=== PATIENT | female | born 1970 | race Caucasian/White ===

== ENCOUNTER 2020-10-06 00:19 | Emergency (ER) | payer BC, OTHER ==
[2020-10-06 00:24] VITALS: BP 137/96; PULSE 94; RESP 20; TEMP 98.1
--- NOTE | 2020-10-06 00:33 | ED ---
ENT HPI - General Chief complaint: ENT Stated complaint: throat issues Time Seen by Provider: 10/06/20 00:32 Source: patient, family Mode of arrival: ambulatory Limitations: no limitations - Related Data Previous Rx's Medication Instructions Recorded clindamycin HCL [Cleocin] 300 mg PO Q6HR #40 cap 10/06/20 Allergies Allergy/AdvReac Type Severity Reaction Status Date / Time heparin Allergy Rash/Hives Verified 10/06/20 00:24 lisinopril Allergy Rash/Hives Verified 10/06/20 00:24 Penicillins Allergy Rash/Hives Verified 10/06/20 00:24 Review of Systems ROS Statement: Those systems with pertinent positive or pertinent negative responses have been documented in the HPI. ROS Other: All systems not noted in ROS Statement are negative. Past Medical History Past Medical History: Hypertension History of Any Multi-Drug Resistant Organisms: None Reported Past Surgical History: No Surgical Hx Reported Past Psychological History: No Psychological Hx Reported Smoking Status: Never smoker Past Alcohol Use History: Occasional Past Drug Use History: None Reported General Exam Limitations: no limitations Course Vital Signs 10/06/20 00:21 Temperature 98.1 F Pulse Rate 94 Respiratory 20 Rate Blood Pressure 137/96 O2 Sat by Pulse 97 Oximetry Medical Decision Making - Lab Data Result diagrams: 10/06/20 01:21 10/06/20 01:21 Lab Results 10/06/20 10/06/20 10/06/20 Range/Units 01:21 01:21 01:21 WBC 7.9 (3.8-10.6) k/uL RBC 4.95 (3.80-5.40) m/uL Hgb 11.1 L (11.4-16.0) gm/dL Hct 35.3 (34.0-46.0) % MCV 71.3 L (80.0-100.0) fL MCH 22.5 L (25.0-35.0) pg MCHC 31.6 (31.0-37.0) g/dL RDW 16.4 H (11.5-15.5) % Plt Count 315 (150-450) k/uL MPV 6.7 Neutrophils % 62 % Lymphocytes % 29 % Monocytes % 4 % Eosinophils % 2 % Basophils % 1 % Neutrophils # 4.9 (1.3-7.7) k/uL Lymphocytes # 2.3 (1.0-4.8) k/uL Monocytes # 0.3 (0-1.0) k/uL Eosinophils # 0.2 (0-0.7) k/uL Basophils # 0.1 (0-0.2) k/uL Hypochromasia Moderate Anisocytosis Slight Microcytosis Moderate Sodium 140 (137-145) mmol/L Potassium 4.9 (3.5-5.1) mmol/L Chloride 103 (98-107) mmol/L Carbon Dioxide 30 (22-30) mmol/L Anion Gap 7 mmol/L BUN 20 H (7-17) mg/dL Creatinine 0.56 (0.52-1.04) mg/dL Est GFR (CKD-EPI)AfAm >90 (>60 ml/min/1.73 sqM) Est GFR (CKD-EPI)NonAf >90 (>60 ml/min/1.73 sqM) Glucose 120 H (74-99) mg/dL Calcium 9.1 (8.4-10.2) mg/dL Phosphorus 4.3 (2.5-4.5) mg/dL Magnesium 2.0 (1.6-2.3) mg/dL Total Bilirubin 0.3 (0.2-1.3) mg/dL AST 37 H (14-36) U/L ALT 19 (4-34) U/L Alkaline Phosphatase 90 (38-126) U/L Creatine Kinase 128 (30-135) U/L NT-Pro-B Natriuret Pep 39 pg/mL Total Protein 7.0 (6.3-8.2) g/dL Albumin 4.2 (3.5-5.0) g/dL Disposition Clinical Impression: Thyroglossal duct cyst, Thyroglossal duct infection Disposition: HOME SELF-CARE Condition: Good Instructions (If sedation given, give patient instructions): Cellulitis (ED) Prescriptions: clindamycin HCL [Cleocin] 300 mg PO Q6HR #40 cap Is patient prescribed a controlled substance at d/c from ED?: No Referrals: Rohan Lees MD [STAFF PHYSICIAN] - 1-2 days
[2020-10-06] MEDS ORDERED: SODIUM CHLORIDE 0.9% 1,000 ML IV STA (00:41)
[2020-10-06] MEDS ORDERED: FAMOTIDINE 20 MG/2 ML VIAL IV STA (01:23)
[2020-10-06] MEDS ORDERED: methylPREDNISolone SOD SUCCI 125 MG/2 ML VIAL IV STA (01:23)
[2020-10-06] MEDS ORDERED: diphenhydrAMINE 50 MG/ML 1 ML VIAL IVP STA (01:23)
[2020-10-06 01:52] LABS: Anisocytosis Slight; Basophils # (A) 0.1 k/uL (0-0.2); Basophils % (A) 1 %; Eosinophils # (A) 0.2 k/uL (0-0.7); Eosinophils % (A) 2 %; HCT 35.3 % (34.0-46.0); HGB 11.1 gm/dL (11.4-16.0); Hypochromasia Moderate; Lymphocytes # (A) 2.3 k/uL (1.0-4.8); Lymphocytes % (A) 29 %; MCH 22.5 pg (25.0-35.0); MCHC 31.6 g/dL (31.0-37.0); MCV 71.3 fL (80.0-100.0); Mean Platelet Volume 6.7; Microcytosis Moderate; Monocytes # (A) 0.3 k/uL (0-1.0); Monocytes % (A) 4 %; Neutrophils # (A) 4.9 k/uL (1.3-7.7); Neutrophils % (A) 62 %; Platelet Count 315 k/uL (150-450); RBC 4.95 m/uL (3.80-5.40); RDW 16.4 % (11.5-15.5); WBC 7.9 k/uL (3.8-10.6)
[2020-10-06 02:04] LABS: ALT 19 U/L (4-34); AST 37 U/L (14-36); African American GFR (CKD) >90 (>60 ml/min/1.73 sqM); Albumin 4.2 g/dL (3.5-5.0); Alkaline Phosphatase 90 U/L (38-126); Anion Gap 7 mmol/L; Blood Urea Nitrogen 20 mg/dL (7-17); Calcium 9.1 mg/dL (8.4-10.2); Carbon Dioxide 30 mmol/L (22-30); Chloride 103 mmol/L (98-107); Creatine Kinase 128 U/L (30-135); Glucose 120 mg/dL (74-99); Non-African American GFR(CKD) >90 (>60 ml/min/1.73 sqM); Phosphorus 4.3 mg/dL (2.5-4.5); Potassium 4.9 mmol/L (3.5-5.1); Sodium 140 mmol/L (137-145); Total Bilirubin 0.3 mg/dL (0.2-1.3)
--- NOTE | 2020-10-06 02:04 | CT ---
EXAMINATION TYPE: CT soft tissue neck w con DATE OF EXAM: 10/06/2020 COMPARISON: None HISTORY: Swelling in throat CT DLP: 375.1 mGycm Automated exposure control for dose reduction was used. CONTRAST: Performed with IV Contrast, patient injected with 100 mL of Isovue 300. Images obtained from the aortic arch to the top of the frontal sinuses with IV contrast. There is no evidence of mediastinal adenopathy. There is normal branching pattern of the great vessel s on the aortic arch. Thyroid gland is symmetric. Epiglottis is normal. Subglottic trachea appears no rmal. Submandibular salivary glands appear normal. There is normal contrast opacification of carotid arteries and jugular veins. There is normal enhancement of the vertebral arteries. The parotid glands are symmetric. The tonsils and adenoids appear within normal limits. I see no evid ence of a pharyngeal mass. There is no evidence of any significant cervical adenopathy. There is 11 x 8 mm right anterior triangle cervical lymph node. The tongue appears intact. There is no evidence of orbital mass. There is fairly normal aeration of the paranasal sinuses. I see no bony destructive process. There is a few millimeter anterior subluxation of C3 in relation to C4. There is degenerative disc sp rj narrowing in the lower cervical spine. IMPRESSION: No evidence of pharyngeal mass. Normal epiglottis. Cervical spondylotic changes.
--- NOTE | 2020-10-06 02:54 | US ---
EXAMINATION TYPE: US thyroid st tissue head/neck DATE OF EXAM: 10/06/2020 COMPARISON: CT CLINICAL HISTORY: mass. Mass per order, just below patient's chin. Scanned area of patient's concern. Palpable area was submandibular and midline within the neck, supe rior to the thyroid gland. -Hypoechoic area seen measuring 0.5 x 0.4 x 0.4 cm. -Hypoechoic area with hyperechoic center and vascularity seen just inferior measurin.9 x 1.1 x 0. 7 cm. IMPRESSION: There is a complex cyst in the midline neck above the thyroid gland that could be thyroglossal duct c yst. There are submandibular lymph nodes that measure up to 11 x 7 mm.
[2020-10-06] MEDS ORDERED: KETOROLAC 15 MG/ML 1 ML VIAL IVP STA (02:57)
[2020-10-06] MEDS ORDERED: CLINDAMYCIN 150 MG CAP PO STA (03:03)
== END 2020-10-06 03:42 | disposition home or self-care (01) ==
LOC: EC 00:19
DX: K14.8 Other diseases of tongue (principal); Q89.2 Congenital malformations of other endocrine glands; I10 Essential (primary) hypertension; Z88.0 Allergy status to penicillin
CPT/HCPCS: 36415; 83880; 80053; 82550; 83735; 84100; 85025; 76536; 70491; 99283; 96374; 96375 ×3; 96361; J1200; J2930; J1885; Q9967

== ENCOUNTER → 2021-03-25 | Outpatient (CLI) | payer SELFPAY ==
[~2021-03-25] MED LIST: CASIRIVIMAB (REGN10933) (EUA) 600 MG, IMDEVIMAB (REGN10987) (EUA) 600 MG in SODIUM CHLO... IVPB ONE
[2021-03-25] MEDS: CASIRIVIMAB (REGN10933) (EUA) 600 MG, IMDEVIMAB (REGN10987) (EUA) 600 MG in SODIUM CHLO... IVPB ONE (08:10)
[2021-03-25] MEDS: SODIUM CHLORIDE 0.9% 500 ML 500 ML in EMPTY BAG 1 BAG IV PRN (08:10)
[2021-03-25 08:27] VITALS: TEMP 98.7
[2021-03-25] MEDS: SODIUM CHLORIDE 0.9% 50 ML IVPB ONE (08:33)
[2021-03-25 09:41] VITALS: BP 132/78; PULSE 78; RESP 17
== END ==
LOC: PROCWHC3 08:23
PROVIDERS: ATTEND Family Medicine
DX: U07.1 COVID-19 (principal); E66.9 Obesity, unspecified; Z68.41 Body mass index [BMI] 40.0-44.9, adult; Z88.8 Allergy status to other drugs, medicaments and biological substances; Z88.0 Allergy status to penicillin
CPT/HCPCS: Q0244; M0243

== ENCOUNTER → 2021-05-24 | Outpatient (CLI) | payer BC | END | disposition home or self-care (01) | LOC: LABWHC1 11:27 | PROVIDERS: ATTEND Family Medicine | DX: R73.9 Hyperglycemia, unspecified (principal) | CPT/HCPCS: 36415; 82947; 83036 ==

== ENCOUNTER 2022-02-06 18:01 | Emergency (ER) | payer BC ==
[2022-02-06 18:07] VITALS: TEMP 98.1
[2022-02-06] MEDS ORDERED: PANTOPRAZOLE 40 MG/10 ML VIAL IVP STA (18:14)
[2022-02-06] MEDS ORDERED: SODIUM CHLORIDE 0.9% 1,000 ML IV STA (18:14)
[2022-02-06] MEDS ORDERED: diphenhydrAMINE 50 MG/ML 1 ML VIAL IVP STA (18:14)
[2022-02-06] MEDS ORDERED: ONDANSETRON 4 MG/2 ML VIAL IVP STA (18:14)
[2022-02-06 18:43] LABS: Basophils # (A) 0.1 k/uL (0-0.2); Basophils % (A) 0 %; Eosinophils # (A) 0.2 k/uL (0-0.7); Eosinophils % (A) 1 %; HCT 46.3 % (34.0-46.0); HGB 15.8 gm/dL (11.4-16.0); Lymphocytes # (A) 2.2 k/uL (1.0-4.8); Lymphocytes % (A) 13 %; MCH 30.5 pg (25.0-35.0); MCHC 34.1 g/dL (31.0-37.0); MCV 89.4 fL (80.0-100.0); Mean Platelet Volume 8.5; Monocytes # (A) 0.3 k/uL (0-1.0); Monocytes % (A) 2 %; Neutrophils # (A) 13.7 k/uL (1.3-7.7); Neutrophils % (A) 83 %; Platelet Count 277 k/uL (150-450); RBC 5.18 m/uL (3.80-5.40); RDW 12.9 % (11.5-15.5); WBC 16.6 k/uL (3.8-10.6)
[2022-02-06 18:56] LABS: ALT 41 U/L (4-34); AST 45 U/L (14-36); African American GFR (CKD) >90 (>60 ml/min/1.73 sqM); Albumin 5.2 g/dL (3.5-5.0); Alkaline Phosphatase 108 U/L (38-126); Amylase 186 U/L (30-110); Anion Gap 12 mmol/L; Blood Urea Nitrogen 22 mg/dL (7-17); Calcium 10.2 mg/dL (8.4-10.2); Carbon Dioxide 29 mmol/L (22-30); Chloride 101 mmol/L (98-107); Glucose 148 mg/dL (74-99); Lipase 115 U/L (23-300); Non-African American GFR(CKD) 90 (>60 ml/min/1.73 sqM); Sodium 142 mmol/L (137-145); Total Bilirubin 0.5 mg/dL (0.2-1.3); Total Protein 8.3 g/dL (6.3-8.2)
--- NOTE | 2022-02-06 19:16 | ED ---
Nausea/Vomiting/Diarrhea HPI - General Chief complaint: Nausea/Vomiting/Diarrhea Stated complaint: Vomiting Time Seen by Provider: 02/06/22 18:05 Source: patient, EMS, RN notes reviewed Mode of arrival: EMS Limitations: no limitations - History of Present Illness Initial comments: This is a 52-year-old female who presents to the emergency department for nausea and vomiting. States that approximately 3 hours prior to arrival, she started throwing up profusely. The next thing she knew, she was on the bathroom floor with her head between her knees. Does not believe that she lost consciousness. Feels very dehydrated and "out of it". States that she has never experienced anything like this before. Denies any diarrhea, constipation, associated abdo maryann pain, or fevers. She does feel very sweaty. Patient was noted to be diaphoretic in the examination room. Denies any fevers, chills, sore throat, cough, dyspnea, chest pain, palpitat ions, abdominal pain, diarrhea, back pain, or headaches. MD complaint: nausea, vomiting Associated Abdominal Pain: No - Related Data Home Medications Medication Instructions Recorded Confirmed Cholecalciferol [Vitamin D3 (25 25 mcg PO DAILY 08/24/21 10/05/21 Mcg = 1000 Iu)] PARoxetine [Paxil] 10 mg PO DAILY 08/24/21 10/05/21 Vitamin B Complex 1 each PO DAILY 08/24/21 10/05/21 Previous Rx's Medication Instructions Recorded Ondansetron Odt [Zofran Odt] 4 mg PO Q8HR PRN #20 tab 02/06/22 Tamsulosin [Flomax] 0.4 mg PO DAILY #10 cap 02/06/22 Allergies Allergy/AdvReac Type Severity Reaction Status Date / Time heparin Allergy Rash/Hives Verified 10/05/21 09:57 lisinopril Allergy Rash/Hives Verified 10/05/21 09:57 Penicillins Allergy Rash/Hives Verified 10/05/21 09:57 Review of Systems ROS Statement: Those systems with pertinent positive or pertinent negative responses have been documented in the HPI. ROS Other: All systems not noted in ROS Statement are negative. Past Medical History Past Medical History: Hypertension Additional Past Medical History / Comment(s): PAST [employer] HISTORY: She has no history of STDs. History of Any Multi-Drug Resistant Organisms: None Reported Past Surgical History: Bariatric Surgery Additional Past Surgical History / Comment(s): Laparoscopic examination for infertility. Gastric bypass. Past Psychological History: Depression Smoking Status: Never smoker - Past Family History Mother Additional Family Medical History / Comment(s): Parkinson's disease. Aortic valve replacement. Father Family Medical History: Diabetes Mellitus Additional Family Medical History / Comment(s): . General Exam Limitations: no limitations General appearance: alert, in distress Head exam: Present: atraumatic, normocephalic, normal inspection Respiratory exam: Present: normal lung sounds bilaterally. Absent: respiratory distress, wheezes, rales, rhonchi, stridor Cardiovascular Exam: Present: regular rate, normal rhythm, normal heart sounds. Absent: systolic murmur, diastolic murmur, rubs, gallop, clicks GI/Abdominal exam: Present: soft, normal bowel sounds. Absent: distended, tenderness, guarding, rebound, rigid Neurological exam: Present: alert, oriented X3, CN II-XII intact Psychiatric exam: Present: normal affect, normal mood Skin exam: Present: warm, intact, normal color, diaphoretic. Absent: rash Course Vital Signs 02/06/22 02/06/22 18:04 22:39 Temperature 98.1 F Pulse Rate 94 81 Respiratory 18 16 Rate Blood Pressure 133/80 128/67 O2 Sat by Pulse 96 98 Oximetry Medical Decision Making - Medical Decision Making This is a 52-year-old female who presents to the emergency department for nausea and vomiting. Lab work reveals leukocytosis. This may be reactive or related to an infection. Discussed with the patient the possibility of getting a CT scan versus monitoring her symptoms due to the fact that there is not any pain. She is agreeable to the CT scan and would like to proceed due to the severity of her symptoms earlier. Computed tomography scan reveals a nonobstructing left ureteral calculus with focal hydroureter. Urinalysis reveals no signs of infection. Additionally, there is mild intrahepatic and extrahepatic biliary duct dilation. Ultrasound of the gallbladder was suggested. Findings discussed the patient, and she does wish to proceed with the ultrasound. Gallbladder ultrasound was subsequently obtained. US revealed cholelithiasis with a dilated common bile duct and gallbladder wall thickening. Sonographic Steiner's sign was negative. Findings were equivocal for a cholecystitis. Given that the patient is essentially asymptomatic at this time, we discussed that this is unlikely to be an acute infection, especially as she has not had any severe pain while she has been in the emergency department, and she is not able to recall any pain from earlier in the day. Patient states that she feels much better and requests discharge home. I did offer admission due to these equivocal findings, however she declined and is comfortable following up as an outpatient. She was given information for general surgery follow-up and urology follow-up. Instructed her to contact both offices in the morning to discuss further management. Prescription for Zofran provided for any additional nausea and vomiting as well as Flomax for the kidney stone. Instructed her to follow a low-fat diet to reduce the risk of another gallbladder attack. If she does develop any pain, advised [id number] ibuprofen and Tylenol. Symptoms were treated with IV fluids and Zofran, which improved her symptoms dramatically. She was able to eat and drink water without any difficulty prior to discharge. Return precautions reviewed in depth, the patient is instructed to return to the emergency department with any new, worsening, or concerning symptoms. Patient verbalized understanding. This case was discussed in detail with the attending ED physician. Presentation, findings, and treatment plan discussed in detail as well. - Lab Data Result diagrams: 02/06/22 18:29 02/06/22 18:29 Lab Results 02/06/22 02/06/22 02/06/22 Range/Units 18:29 18:29 18:29 WBC 16.6 H (3.8-10.6) k/uL RBC 5.18 (3.80-5.40) m/uL Hgb 15.8 (11.4-16.0) gm/dL Hct 46.3 H (34.0-46.0) % MCV 89.4 (80.0-100.0) fL MCH 30.5 (25.0-35.0) pg MCHC 34.1 (31.0-37.0) g/dL RDW 12.9 (11.5-15.5) % Plt Count 277 (150-450) k/uL MPV 8.5 Neutrophils % 83 % Lymphocytes % 13 % Monocytes % 2 % Eosinophils % 1 % Basophils % 0 % Neutrophils # 13.7 H (1.3-7.7) k/uL Lymphocytes # 2.2 (1.0-4.8) k/uL Monocytes # 0.3 (0-1.0) k/uL Eosinophils # 0.2 (0-0.7) k/uL Basophils # 0.1 (0-0.2) k/uL Sodium 142 (137-145) mmol/L Potassium 4.0 (3.5-5.1) mmol/L Chloride 101 (98-107) mmol/L Carbon Dioxide 29 (22-30) mmol/L Anion Gap 12 mmol/L BUN 22 H (7-17) mg/dL Creatinine 0.76 (0.52-1.04) mg/dL Est GFR (CKD-EPI)AfAm >90 (>60 ml/min/1.73 sqM) Est GFR (CKD-EPI)NonAf 90 (>60 ml/min/1.73 sqM) Glucose 148 H (74-99) mg/dL Calcium 10.2 (8.4-10.2) mg/dL Total Bilirubin 0.5 (0.2-1.3) mg/dL AST 45 H (14-36) U/L ALT 41 H (4-34) U/L Alkaline Phosphatase 108 (38-126) U/L Troponin I <0.012 (0.000-0.034) ng/mL Total Protein 8.3 H (6.3-8.2) g/dL Albumin 5.2 H (3.5-5.0) g/dL Amylase 186 H (30-110) U/L Lipase 115 (23-300) U/L Urine Color Urine Appearance (Clear) Urine pH (5.0-8.0) Ur Specific [place] (1.001-1.035) Urine Protein (Negative) Urine Glucose (UA) (Negative) Urine Ketones (Negative) Urine Blood (Negative) Urine Nitrite (Negative) Urine Bilirubin (Negative) Urine Urobilinogen (<2.0) mg/dL Ur Leukocyte Esterase (Negative) Coronavirus (PCR) (Not Detectd) Influenza Type A RNA (Not Detectd) Influenza Type B (PCR) (Not Detectd) 02/06/22 02/06/22 02/06/22 Range/Units 18:29 18:29 20:58 WBC (3.8-10.6) k/uL RBC (3.80-5.40) m/uL Hgb (11.4-16.0) gm/dL Hct (34.0-46.0) % MCV (80.0-100.0) fL MCH (25.0-35.0) pg MCHC (31.0-37.0) g/dL RDW (11.5-15.5) % Plt Count (150-450) k/uL MPV Neutrophils % % Lymphocytes % % Monocytes % % Eosinophils % % Basophils % % Neutrophils # (1.3-7.7) k/uL Lymphocytes # (1.0-4.8) k/uL Monocytes # (0-1.0) k/uL Eosinophils # (0-0.7) k/uL Basophils # (0-0.2) k/uL Sodium (137-145) mmol/L Potassium (3.5-5.1) mmol/L Chloride (98-107) mmol/L Carbon Dioxide (22-30) mmol/L Anion Gap mmol/L BUN (7-17) mg/dL Creatinine (0.52-1.04) mg/dL Est GFR (CKD-EPI)AfAm (>60 ml/min/1.73 sqM) Est GFR (CKD-EPI)NonAf (>60 ml/min/1.73 sqM) Glucose (74-99) mg/dL Calcium (8.4-10.2) mg/dL Total Bilirubin (0.2-1.3) mg/dL AST (14-36) U/L ALT (4-34) U/L Alkaline Phosphatase (38-126) U/L Troponin I (0.000-0.034) ng/mL Total Protein (6.3-8.2) g/dL Albumin (3.5-5.0) g/dL Amylase (30-110) U/L Lipase (23-300) U/L Urine Color Light Yellow Urine Appearance Clear (Clear) Urine pH 8.0 (5.0-8.0) Ur Specific [place] 1.024 (1.001-1.035) Urine Protein Negative (Negative) Urine Glucose (UA) Negative (Negative) Urine Ketones Negative (Negative) Urine Blood Negative (Negative) Urine Nitrite Negative (Negative) Urine Bilirubin Negative (Negative) Urine Urobilinogen <2.0 (<2.0) mg/dL Ur Leukocyte Esterase Negative (Negative) Coronavirus (PCR) Not Detected (Not Detectd) Influenza Type A RNA Not Detected (Not Detectd) Influenza Type B (PCR) Not Detected (Not Detectd) - EKG Data -: EKG Interpreted by Me EKG Comments: Sinus rhythm. Ventricular rate 89 bpm, MO interval 149 ms, QRS duration 105 ms, QTC 397 ms. - Radiology Data Radiology results: report reviewed, image reviewed Disposition Clinical Impression: Cholelithiasis, Ureteral calculus, left Disposition: HOME SELF-CARE Instructions (If sedation given, give patient instructions): Biliary Colic (ED), Gallstones (ED), Kidney Stones (ED), Renal Colic (ED) Additional Instructions: Return to the emergency department with any new, worsening, or concerning symptoms. Take the Zofran up to every 8 hours as needed for nausea and vomiting. Take the Flomax daily until the prescription is finished or until told otherwise by urology. Reduce your intake of fatty foods to limit the chance of a recurrent gallbladder attack. It may be helpful to do some research regarding which foods to avoid with gallbladder problems. Make sure that you contact Dr. Hernandez as listed below to discuss removal of your gallbladder. If you do experience any pain, you can take ibuprofen and Tylenol. Contact urology as well regarding the kidney stone. Follow up with your primary care provider in 1-2 days. Prescriptions: Tamsulosin [Flomax] 0.4 mg PO DAILY #10 cap Ondansetron Odt [Zofran Odt] 4 mg PO Q8HR PRN #20 tab PRN Reason: Nausea And Vomiting Is patient prescribed a controlled substance at d/c from ED?: No Referrals: Reji Simmons MD [Primary Care Provider] - 1-2 days Sergey Hernandez MD [Medical Doctor] - 1-2 days Meliton Knowles MD [STAFF PHYSICIAN] - 1-2 days
[2022-02-06] MEDS ORDERED: FAMOTIDINE 20 MG/2 ML VIAL IV STA (19:44)
[2022-02-06] MEDS ORDERED: methylPREDNISolone SOD SUCCI 125 MG/2 ML VIAL IV STA (19:44)
--- NOTE | 2022-02-06 20:15 | CT ---
EXAMINATION TYPE: CT abdomen pelvis w con CT DLP: 1419.3 mGycm, Automated exposure control for dose reduction was used. DATE OF EXAM: 02/06/2022 8:02 PM COMPARISON: None CLINICAL INDICATION:Female, 52 years old with history of Vomiting, abdominal pain; Vomiting, abdomina l pain TECHNIQUE: Axial CT of the abdomen and pelvis. Sagittal and coronal reformats were created on a [employer] workstation. Contrast used:100cc mL of Isovue 300 with IV Contrast, Oral contrast used: without Oral Contrast FINDINGS: LOWER CHEST: Unremarkable ABDOMEN LIVER: Mild intrahepatic biliary ductal dilatation, most dense within the left hepatic lobe. The live r is otherwise normal in appearance. GALLBLADDER AND BILE DUCTS: Contracted appearance of the gallbladder without evidence for calcified c holelithiasis. Common bile duct is prominent measuring up to 8 mm in maximal width (series 202, image 60). No evidence for pericholecystic fluid PANCREAS: Unremarkable. SPLEEN: Unremarkable. ADRENAL GLANDS: Unremarkable. KIDNEYS AND URETERS: The left mid ureter is a 5 mm calculus (series 202, image 68). There is focal hy droureter without evidence for hydronephrosis. Mild periureteral fat stranding. The right kidney is n ormal in appearance. PELVIS BLADDER: Unremarkable REPRODUCTIVE: Unremarkable. ABDOMEN & PELVIS STOMACH AND BOWEL: Surgical changes to the stomach. Small hiatal hernia.. Scattered diverticula are n oted throughout the colon. No evidence of bowel obstruction. Appendix is normal. PERITONEUM: No evidence of pneumoperitoneum or free fluid. VASCULATURE: No evidence of aortic aneurysm. MUSCULOSKELETAL: No acute osseous abnormalities. Grade 1 anterolisthesis of L4 and L5. Mild disc dege neration changes are present throughout the thoracolumbar spine. LYMPH NODES: No gross evidence for lymphadenopathy. SOFT TISSUE/ABDOMINAL WALL: Unremarkable IMPRESSION: 1. Non-obstructing 5 mm left ureteral calculus. No hydronephrosis. 2. Mild intra and extrahepatic biliary ductal dilatation. No evidence for calcified cholelithiasis. C orrelate for history of right upper quadrant pain and consideration for right upper quadrant ultrasou nd. 3.Small hiatal hernia. 4. Colonic diverticulosis.
[2022-02-06 21:51] LABS: Appearance,Urine Clear (Clear); Bilirubin,Urine Negative (Negative); Blood,Urine Negative (Negative); Color,Urine Light Yellow; Glucose,Urine (UA) Negative (Negative); Ketones,Urine Negative (Negative); Leukocyte Esterase,Urine Negative (Negative); Nitrite,Urine Negative (Negative); Protein,Urine Negative (Negative); Specific Gravity,Urine 1.024 (1.001-1.035); Urobilinogen,Urine <2.0 mg/dL (<2.0)
[2022-02-06] MEDS ORDERED: ONDANSETRON 4 MG ODT STARTER PACK 2 TAB BTL PO STA (21:56)
--- NOTE | 2022-02-06 21:59 | US ---
EXAMINATION TYPE: US gallbladder DATE OF EXAM: 02/06/2022 COMPARISON: CT abdomen pelvis 02/07/2020 2:00 PM CLINICAL HISTORY: Pain, nausea and vomiting, abnormal CT. TECHNIQUE: Multiple sonographic images of the right upper quadrant are obtained. FINDINGS: EXAM MEASUREMENTS: Liver Length: 16.0 cm Gallbladder Wall: 0.5 cm CBD: 1.1 cm Right Kidney: 10.6 x 4.2 x 6.0 cm ENROBING MACHINE CORDER NOTES: Patient of very large body habitus with extensive overlying bowel gas, technically difficult study, l imited study. Pancreas: Obscured by bowel gas Liver: Portions of the liver are obscured by body habitus and overlying bowel gas. Liver measures ole roximately 16 cm in length. Gallbladder: Gallbladder wall thickening. Multiple echogenic gallstones within the lumen. No apprecia ble pericholecystic fluid. Evidence for sonographic Steiner's sign: Per developer evangelist patient sonographic Steiner sign was negativ e. CBD: Dilated common bile duct measuring up to 10 mm. Right Kidney: No hydronephrosis or masses seen IMPRESSION: Cholelithiasis with dilated common bile duct. Findings are equivocal for acute cholecystitis in the s etting of a negative sonographic Steiner sign. Consider further evaluation with nuclear medicine hepat obiliary scan.
[2022-02-06 22:40] VITALS: BP 128/67; PULSE 81; RESP 16
== END 2022-02-06 22:40 | disposition home or self-care (01) ==
LOC: EC 18:01
DX: K80.20 Calculus of gallbladder without cholecystitis without obstruction (principal); N20.1 Calculus of ureter; I10 Essential (primary) hypertension; Z20.822 Contact with and (suspected) exposure to COVID-19; Z88.0 Allergy status to penicillin; Z88.8 Allergy status to other drugs, medicaments and biological substances
CPT/HCPCS: 36415; 93005; 80053; 82150; 83690; 84484; 85025; 81003; 87502; 87635; 76705; 74177; 99285; 96375 ×4; 96374; 96361; J1200; J2930; J2405; S0119; C9113; Q9967

== ENCOUNTER 2022-04-07 02:36 | Emergency (ER) | payer BC ==
[2022-04-07 02:45] VITALS: TEMP 97.3
[2022-04-07] MEDS ORDERED: SODIUM CHLORIDE 0.9% 1,000 ML IV STA (03:21)
[2022-04-07] MEDS ORDERED: HYDROmorphone 0.5 MG/0.5 ML SYRINGE IVP STA (03:21)
[2022-04-07] MEDS ORDERED: ONDANSETRON 4 MG/2 ML VIAL IVP STA (03:21)
--- NOTE | 2022-04-07 03:22 | ED ---
Abdominal Pain HPI - General Chief Complaint: Back Pain/Injury Stated Complaint: Back Pain,ABD Pain Time Seen by Provider: 04/07/22 03:21 Source: patient, RN notes reviewed, old records reviewed Mode of arrival: ambulatory Limitations: no limitations - History of Present Illness Initial Comments: This is a 52-year-old female to the emergency department for evaluation patient presents today for evaluation regards to abdominal pain back pain. History of chronic back pain history of gastric bypass. Patient's pain is severe currently. Patient also believes she has decreased urine output and nausea MD Complaint: abdominal pain -: hour(s) Location: LLQ, suprapubic, L flank Radiation: suprapubic Migration to: suprapubic Severity: moderate Severity scale (1-10): 4 Quality: cramping, stabbing, aching Consistency: constant Improves With: nothing Worsens With: nothing Associated Symptoms: nausea, vomiting Treatments Prior to Arrival: other (0) - Related Data Home Medications Medication Instructions Recorded Confirmed Cholecalciferol [Vitamin D3 (25 25 mcg PO DAILY 08/24/21 10/05/21 Mcg = 1000 Iu)] PARoxetine [Paxil] 10 mg PO DAILY 08/24/21 10/05/21 Vitamin B Complex 1 each PO DAILY 08/24/21 10/05/21 Previous Rx's Medication Instructions Recorded Ondansetron Odt [Zofran Odt] 4 mg PO Q8HR PRN #20 tab 02/06/22 Tamsulosin [Flomax] 0.4 mg PO DAILY #10 cap 02/06/22 Allergies Allergy/AdvReac Type Severity Reaction Status Date / Time iodine Allergy Mild Rash/Hives Verified 04/07/22 04:40 heparin Allergy Rash/Hives Verified 04/07/22 02:42 levofloxacin [From Levaquin] Allergy Rash/Hives Verified 04/07/22 02:42 lisinopril Allergy Rash/Hives Verified 04/07/22 02:42 Penicillins Allergy Rash/Hives Verified 04/07/22 02:42 Review of Systems ROS Statement: Those systems with pertinent positive or pertinent negative responses have been documented in the HPI. ROS Other: All systems not noted in ROS Statement are negative. Past Medical History Past Medical History: Hypertension Additional Past Medical History / Comment(s): PAST [employer] HISTORY: She has no history of STDs. History of Any Multi-Drug Resistant Organisms: None Reported Past Surgical History: Bariatric Surgery Additional Past Surgical History / Comment(s): Laparoscopic examination for infertility. Gastric bypass. Past Psychological History: Depression Smoking Status: Never smoker Past Alcohol Use History: Rare Past Drug Use History: None Reported - Past Family History Mother Additional Family Medical History / Comment(s): Parkinson's disease. Aortic valve replacement. Father Family Medical History: Diabetes Mellitus Additional Family Medical History / Comment(s): . General Exam Limitations: no limitations General appearance: alert, in no apparent distress Head exam: Present: atraumatic, normocephalic, normal inspection Eye exam: Present: normal appearance, PERRL, EOMI. Absent: scleral icterus, conjunctival injection, periorbital swelling ENT exam: Present: normal exam, mucous membranes moist Neck exam: Present: normal inspection. Absent: tenderness, meningismus, lymphadenopathy Respiratory exam: Present: normal lung sounds bilaterally. Absent: respiratory distress, wheezes, rales, rhonchi, stridor Cardiovascular Exam: Present: regular rate, normal rhythm, normal heart sounds. Absent: systolic murmur, diastolic murmur, rubs, gallop, clicks GI/Abdominal exam: Present: soft, normal bowel sounds. Absent: distended, tenderness, guarding, rebound, rigid Extremities exam: Present: normal inspection, full ROM, normal capillary refill. Absent: tenderness, pedal edema, joint swelling, calf tenderness Back exam: Present: normal inspection Neurological exam: Present: alert, oriented X3, CN II-XII intact Psychiatric exam: Present: normal affect, normal mood Skin exam: Present: warm, dry, intact, normal color. Absent: rash Course Vital Signs 04/07/22 04/07/22 02:42 06:52 Temperature 97.3 F L Pulse Rate 97 81 Respiratory 16 15 Rate Blood Pressure 143/86 137/84 O2 Sat by Pulse 99 100 Oximetry - Reevaluation(s) Reevaluation #1: 04/07/22 03:30 Medical record is reviewed Reevaluation #2: 04/07/22 03:30 Patient symptoms are improved Reevaluation #3: 04/07/22 03:30 Patient informed of results and questions answered Reevaluation #4: 04/07/22 03:30 Differential Back Pain: Strain, zoster, cauda equina syndrome, epidural abscess, vertebral osteomyelitis, discitis, fracture, subluxation, disc herniation, DJD, spinal stenosis, dissection, AAA, pancreatitis, peptic ulcer disease, pyelonephritis, kidney stone, this is not meant to be an all-inclusive list. Differential Abdominal Pain Women: Appendicitis, Cholecystitis, diverticulosis, ischemic bowel, pancreatitis, hepatitis, UTI, gastroenteritis, AAA, incarcerated hernia, bowel obstruction, constipation, inflammatory bowel, hepatitis, peptic ulcer disease, splenic infarction, perforated viscus, vulvitis, ovarian torsion, PID, kidney stone, placenta abruption, this is not meant to be an all-inclusive list Reevaluation #5: 04/07/22 03:30 Was pt. sent in by a medical professional or institution? @ -no Did you speak to anyone other than the patient for history? @ -no Did you review nursing and triage notes? @ -agree Were old charts reviewed? @ -no Differential Diagnosis? @ -prior EKG interpreted by me (3pts min.)? @ -[none] X-rays interpreted by me (1pt min.)? @ -[none] CT interpreted by me (1pt min.)? @ -[none] U/S interpreted by me (1pt. min.)? @ -[none] What testing was considered but not performed? (CT, X-rays, U/S, labs)? Why? @ no What meds were considered but not given? Why? @ -[none] Did you discuss the management of the patient with other professionals? @ -no Did you reconcile home meds? @ -[none] Was smoking cessation discussed for >3mins.? @ -[none] Was critical care preformed (if so, how long)? @ -[none] Were there social determinants of health that impacted care today? How? (Homelessness, low income, unemployed, alcoholism, drug addiction, transportation, low edu. Level, literacy, decrease access to med. care, fci, rehab)? @ -no Was there de-escalation of care discussed even if they declined? (Discuss DNR or withdrawal of care, Hospice)? @ -no What co-morbidities impacted this encounter? (DM, HTN, Smoking, COPD, CAD, Cancer, CVA, Hep., AIDS, mental health diagnosis, sleep apnea, morbid obesity)? @ -no Was patient admitted / discharged? @ -dc Undiagnosed new problem with uncertain prognosis? @ -[none] Drug Therapy requiring intensive monitoring for toxicity (Heparin, Nitro, Insulin, Cardizem)? @ -[none] Were any procedures done? @ -[none] Diagnosis/symptom? @ -[default] Acute, or Chronic, or Acute on Chronic? @ -[default] Uncomplicated (without systemic symptoms) or Complicated (systemic symptoms)? @ -[default] Side effects of treatment? @ -[none] Exacerbation, Progression, or Severe Exacerbation] @ -[no] Poses a threat to life or bodily function? @ -[no] 04/14/22 01:05 Medical Decision Making - Medical Decision Making 52 female with acute back pain caused from kidney stone found here in the emergency room, symptoms are well, pain is well-controlled here in the ER patient feels good for discharge home - Lab Data Result diagrams: 04/07/22 04:52 04/07/22 04:52 Lab Results 04/07/22 04/07/22 04/07/22 Range/Units 04:20 04:52 04:52 WBC 11.8 H (3.8-10.6) k/uL RBC 4.75 (3.80-5.40) m/uL Hgb 14.4 (11.4-16.0) gm/dL Hct 41.7 (34.0-46.0) % MCV 87.8 (80.0-100.0) fL MCH 30.4 (25.0-35.0) pg MCHC 34.6 (31.0-37.0) g/dL RDW 12.8 (11.5-15.5) % Plt Count 257 (150-450) k/uL MPV 8.2 Neutrophils % 88 % Lymphocytes % 8 % Monocytes % 2 % Eosinophils % 1 % Basophils % 0 % Neutrophils # 10.4 H (1.3-7.7) k/uL Lymphocytes # 1.0 (1.0-4.8) k/uL Monocytes # 0.3 (0-1.0) k/uL Eosinophils # 0.1 (0-0.7) k/uL Basophils # 0.0 (0-0.2) k/uL PT 9.8 (9.0-12.0) sec INR 0.9 (<1.2) APTT 23.8 (22.0-30.0) sec Sodium (137-145) mmol/L Potassium (3.5-5.1) mmol/L Chloride (98-107) mmol/L Carbon Dioxide (22-30) mmol/L Anion Gap mmol/L BUN (7-17) mg/dL Creatinine (0.52-1.04) mg/dL Est GFR (CKD-EPI)AfAm (>60 ml/min/1.73 sqM) Est GFR (CKD-EPI)NonAf (>60 ml/min/1.73 sqM) Glucose (74-99) mg/dL Lactic Ac Sepsis Rflx Plasma Lactic Acid Andrea (0.7-2.0) mmol/L Calcium (8.4-10.2) mg/dL Total Bilirubin (0.2-1.3) mg/dL AST (14-36) U/L ALT (4-34) U/L Alkaline Phosphatase (38-126) U/L Total Protein (6.3-8.2) g/dL Albumin (3.5-5.0) g/dL Amylase (30-110) U/L Lipase (23-300) U/L Urine Color Light Yellow Urine Appearance Cloudy H (Clear) Urine pH 7.5 (5.0-8.0) Ur Specific [employer] 1.019 (1.001-1.035) Urine Protein Trace H (Negative) Urine Glucose (UA) Negative (Negative) Urine Ketones Negative (Negative) Urine Blood Negative (Negative) Urine Nitrite Negative (Negative) Urine Bilirubin Negative (Negative) Urine Urobilinogen <2.0 (<2.0) mg/dL Ur Leukocyte Esterase Small H (Negative) Urine RBC 1 (0-5) /hpf Urine WBC 5 (0-5) /hpf Ur Squamous Epith Cells 4 (0-4) /hpf Urine Bacteria Rare H (None) /hpf Urine Mucus Rare H (None) /hpf 04/07/22 04/07/22 04/07/22 Range/Units 04:52 04:52 06:48 WBC (3.8-10.6) k/uL RBC (3.80-5.40) m/uL Hgb (11.4-16.0) gm/dL Hct (34.0-46.0) % MCV (80.0-100.0) fL MCH (25.0-35.0) pg MCHC (31.0-37.0) g/dL RDW (11.5-15.5) % Plt Count (150-450) k/uL MPV Neutrophils % % Lymphocytes % % Monocytes % % Eosinophils % % Basophils % % Neutrophils # (1.3-7.7) k/uL Lymphocytes # (1.0-4.8) k/uL Monocytes # (0-1.0) k/uL Eosinophils # (0-0.7) k/uL Basophils # (0-0.2) k/uL PT (9.0-12.0) sec INR (<1.2) APTT (22.0-30.0) sec Sodium 140 (137-145) mmol/L Potassium 4.5 (3.5-5.1) mmol/L Chloride 103 (98-107) mmol/L Carbon Dioxide 25 (22-30) mmol/L Anion Gap 12 mmol/L BUN 25 H (7-17) mg/dL Creatinine 0.75 (0.52-1.04) mg/dL Est GFR (CKD-EPI)AfAm >90 (>60 ml/min/1.73 sqM) Est GFR (CKD-EPI)NonAf >90 (>60 ml/min/1.73 sqM) Glucose 123 H (74-99) mg/dL Lactic Ac Sepsis Rflx Y Plasma Lactic Acid Andrea 3.9 H* (0.7-2.0) mmol/L Calcium 9.3 (8.4-10.2) mg/dL Total Bilirubin 0.5 (0.2-1.3) mg/dL AST 33 (14-36) U/L ALT 44 H (4-34) U/L Alkaline Phosphatase 82 (38-126) U/L Total Protein 7.7 (6.3-8.2) g/dL Albumin 4.8 (3.5-5.0) g/dL Amylase 102 (30-110) U/L Lipase 31 (23-300) U/L Urine Color Urine Appearance (Clear) Urine pH (5.0-8.0) Ur Specific [employer] (1.001-1.035) Urine Protein (Negative) Urine Glucose (UA) (Negative) Urine Ketones (Negative) Urine Blood (Negative) Urine Nitrite (Negative) Urine Bilirubin (Negative) Urine Urobilinogen (<2.0) mg/dL Ur Leukocyte Esterase (Negative) Urine RBC (0-5) /hpf Urine WBC (0-5) /hpf Ur Squamous Epith Cells (0-4) /hpf Urine Bacteria (None) /hpf Urine Mucus (None) /hpf - Radiology Data Radiology results: report reviewed (CT of the abdomen and pelvis is positive for left kidney stone), image reviewed Disposition Clinical Impression: Left ureteral calculus Disposition: HOME SELF-CARE Condition: Good Instructions (If sedation given, give patient instructions): Kidney Stones (ED) Is patient prescribed a controlled substance at d/c from ED?: No Referrals: Reji Simmons MD [Primary Care Provider] - 1-2 days Waqar Styles MD [STAFF PHYSICIAN] - 1-2 days Time of Disposition: 06:00
[2022-04-07 05:17] LABS: Appearance,Urine Cloudy (Clear); Bacteria,Urine Rare /hpf; Bilirubin,Urine Negative (Negative); Blood,Urine Negative (Negative); Color,Urine Light Yellow; Glucose,Urine (UA) Negative (Negative); Ketones,Urine Negative (Negative); Leukocyte Esterase,Urine Small (Negative); Mucus,Urine Rare /hpf; Nitrite,Urine Negative (Negative); PH, Urine 7.5 (5.0-8.0); Protein,Urine Trace (Negative); RBC,Urine 1 /hpf (0-5); Specific Gravity,Urine 1.019 (1.001-1.035); Squamous Epithelial Cell,Urine 4 /hpf (0-4); Urobilinogen,Urine <2.0 mg/dL (<2.0); WBC,Urine 5 /hpf (0-5)
[2022-04-07 05:29] LABS: Basophils % (A) 0 %; Eosinophils # (A) 0.1 k/uL (0-0.7); Eosinophils % (A) 1 %; HCT 41.7 % (34.0-46.0); HGB 14.4 gm/dL (11.4-16.0); Lymphocytes % (A) 8 %; MCH 30.4 pg (25.0-35.0); MCHC 34.6 g/dL (31.0-37.0); MCV 87.8 fL (80.0-100.0); Mean Platelet Volume 8.2; Monocytes # (A) 0.3 k/uL (0-1.0); Monocytes % (A) 2 %; Neutrophils # (A) 10.4 k/uL (1.3-7.7); Neutrophils % (A) 88 %; Platelet Count 257 k/uL (150-450); RBC 4.75 m/uL (3.80-5.40); RDW 12.8 % (11.5-15.5); WBC 11.8 k/uL (3.8-10.6)
--- NOTE | 2022-04-07 05:29 | CT ---
EXAMINATION TYPE: CT abdomen pelvis wo con DATE OF EXAM: 04/07/2022 COMPARISON: 02/06/2022 HISTORY: ABD PAIN. LT FLANK CT DLP: 737.8 mGycm Automated exposure control for dose reduction was used. Images obtained from the diaphragm to the floor the pelvis with no contrast. The lung bases are clear. No pleural effusion. Heart size is normal. No pericardial effusion. There i s gastric bariatric surgery. Liver spleen pancreas appear intact. The bile ducts are not dilated. Gallbladder appears normal. There is no adrenal mass. Kidneys have normal size. There is enlargement of the left renal calyces an d pelvis. There is left side proximal ureteral calculus measuring 7 mm. There is left-sided perinephr ic edema. The right kidney shows normal size and contour with no hydronephrosis. No other calculus se en. No retroperitoneal adenopathy. Appendix is posterior and appears normal. The bladder distends smo othly. No inguinal hernia. No free fluid in the pelvis. The uterus is anteverted. The lumbar vertebra show a degenerative first-degree L4-5 spondylolisthesis. No lumbar compression fr acture. The bony pelvis is intact. The hip joints are intact. There is mild lumbar L4-5 facet arthrop athy. Sacroiliac joints appear intact. There is no mesenteric edema. No ascites or free air. No sign of bowel obstruction. IMPRESSION: Obstructing calculus in the proximal left ureter with left sided hydronephrosis and perinephric edema . Calculus in similar position to old exam and slightly increased in size. Perinephric edema and hydr onephrosis significantly increased compared to the old exam.
[2022-04-07 05:40] LABS: INR 0.9 (<1.2); Partial Thromboplastin Time 23.8 sec (22.0-30.0); Prothrombin Time 9.8 sec (9.0-12.0)
[2022-04-07] MEDS ORDERED: TAMSULOSIN 0.4 MG CAP.ER.24H PO STA (05:55)
[2022-04-07] MEDS ORDERED: IBUPROFEN 600 MG STARTER PACK 4 TAB BTL PO STA (05:55)
[2022-04-07] MEDS ORDERED: ONDANSETRON 4 MG ODT STARTER PACK 2 TAB BTL PO STA (05:55)
[2022-04-07] MEDS ORDERED: KETOROLAC 15 MG/ML 1 ML VIAL IVP STA (05:55)
[2022-04-07] MEDS ORDERED: MORPHINE SULFATE 4 MG/ML SYRINGE IVP STA (05:55)
[2022-04-07 06:27] LABS: ALT 44 U/L (4-34); African American GFR (CKD) >90 (>60 ml/min/1.73 sqM); Albumin 4.8 g/dL (3.5-5.0); Amylase 102 U/L (30-110); Anion Gap 12 mmol/L; Blood Urea Nitrogen 25 mg/dL (7-17); Calcium 9.3 mg/dL (8.4-10.2); Carbon Dioxide 25 mmol/L (22-30); Chloride 103 mmol/L (98-107); Glucose 123 mg/dL (74-99); Lipase 31 U/L (23-300); Non-African American GFR(CKD) >90 (>60 ml/min/1.73 sqM); Sodium 140 mmol/L (137-145); Total Bilirubin 0.5 mg/dL (0.2-1.3); Total Protein 7.7 g/dL (6.3-8.2)
[2022-04-07 06:50] LABS: Potassium 4.5 mmol/L (3.5-5.1)
[2022-04-07 06:51] LABS: AST 33 U/L (14-36); Alkaline Phosphatase 82 U/L (38-126)
[2022-04-07 06:53] VITALS: BP 137/84; PULSE 81; RESP 15
== END 2022-04-07 07:01 | disposition home or self-care (01) ==
LOC: EC 02:36
DX: N20.1 Calculus of ureter (principal); I10 Essential (primary) hypertension; F32.A Depression, unspecified; Z88.0 Allergy status to penicillin; Z91.041 Radiographic dye allergy status; Z88.8 Allergy status to other drugs, medicaments and biological substances; Z88.1 Allergy status to other antibiotic agents; Z79.899 Other long term (current) drug therapy
CPT/HCPCS: 36415; 80053; 82150; 83605; 83690; 85025; 85610; 85730; 81001; 74176; 99284; 96374; 96375 ×3; 96361; J2270; J2405; J1885; S0119; J1170

== ENCOUNTER 2022-10-09 15:40 | Emergency (ER) | payer BC ==
[2022-10-09 16:10] VITALS: RESP 18; TEMP 98.8
[2022-10-09] MEDS ORDERED: SODIUM CHLORIDE 0.9% 500 ML 500 ML IV STA (17:30)
[2022-10-09] MEDS ORDERED: MORPHINE SULFATE 4 MG/ML SYRINGE IV STA (17:30)
[2022-10-09] MEDS ORDERED: ONDANSETRON 4 MG/2 ML VIAL IVP STA (17:30)
--- NOTE | 2022-10-09 17:52 | ED ---
Abdominal Pain HPI - General Chief Complaint: Abdominal Pain Stated Complaint: abd/back pain Time Seen by Provider: 10/09/22 17:10 Source: patient Mode of arrival: ambulatory Limitations: no limitations - History of Present Illness Initial Comments: This patient is a 52-year-old woman with history of gastric bypass who presents to have evaluation of generalized abdominal pain. She states that it started early in the morning. She notes that it is diffuse bilateral pain. It tends to have intense episodes lasting couple of minutes and then will resolve for 20-30 minutes but recurs. She has had associated nausea and she states she did have a couple of bowel movements she states that there was some formed stool but seemed to be more than is normal for her. No change in urination. No fever or chills. MD Complaint: abdominal pain Onset/Timin -: hour(s) Location: diffuse Radiation: back Migration to: no migration Severity: severe Quality: cramping Consistency: intermittent Improves With: nothing Worsens With: nothing Associated Symptoms: nausea, diarrhea - Related Data Home Medications Medication Instructions Recorded Confirmed Albuterol Inhaler [Ventolin Hfa 2 puff INHALATION RT-QID PRN 10/09/22 10/21/22 Inhaler] Albuterol Nebulized [Ventolin 2.5 mg INHALATION RT-QID PRN 10/09/22 10/21/22 Nebulized] Doxepin HCl 50 mg PO HS 10/09/22 10/21/22 Naltrexone HCl [Revia] 50 mg PO HS 10/09/22 10/21/22 PARoxetine HCL [Paxil] 40 mg PO HS 10/09/22 10/21/22 Tirzepatide [Mounjaro] 10 mg SQ MO 10/09/22 10/21/22 amLODIPine [Norvasc] 5 mg PO HS 10/09/22 10/21/22 buPROPion [Wellbutrin] 75 mg PO BID 10/09/22 10/21/22 hydroCHLOROthiazide [Hydrodiuril] 25 mg PO HS 10/09/22 10/21/22 Tamsulosin [Flomax] 0.4 mg PO HS 10/21/22 10/21/22 Previous Rx's Medication Instructions Recorded Ondansetron Odt [Zofran ODT] 4 mg PO Q8HR PRN #10 tab 10/09/22 Ketorolac [Toradol] 10 mg PO Q6HR #10 tab 10/25/22 Allergies Allergy/AdvReac Type Severity Reaction Status Date / Time iodine Allergy Mild Rash/Hives Verified 10/21/22 14:41 acetaminophen [From [place]] Allergy Itching Verified 10/21/22 15:05 heparin Allergy Rash/Hives Verified 10/21/22 14:41 hydrocodone [From [place]] Allergy Itching Verified 10/21/22 15:05 levofloxacin [From Levaquin] Allergy Anaphylaxis Verified 10/21/22 14:41 lisinopril Allergy Anaphylaxis Verified 10/21/22 14:41 Penicillins Allergy Rash/Hives Verified 10/21/22 14:41 Review of Systems ROS Statement: Those systems with pertinent positive or pertinent negative responses have been documented in the HPI. ROS Other: All systems not noted in ROS Statement are negative. Constitutional: Denies: fever, chills, weakness Respiratory: Denies: cough, dyspnea Cardiovascular: Denies: chest pain, palpitations Gastrointestinal: Reports: abdominal pain, nausea, diarrhea. 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 History of Any Multi-Drug Resistant Organisms: None Reported Past Surgical History: Bariatric Surgery Additional Past Surgical History / Comment(s): Laparoscopic examination for infertility. Gastric bypass. Past Psychological History: Depression Smoking Status: Never smoker Past Alcohol Use History: Rare Past Drug Use History: None Reported - Past Family History Mother Additional Family Medical History / Comment(s): Parkinson's disease. Aortic valve replacement. Father Family Medical History: Diabetes Mellitus Additional Family Medical History / Comment(s): . General Exam Limitations: no limitations General appearance: alert, in no apparent distress Head exam: Present: atraumatic, normocephalic Eye exam: Present: normal appearance. Absent: scleral icterus, conjunctival injection Neck exam: Present: normal inspection Respiratory exam: Present: normal lung sounds bilaterally. Absent: respiratory distress, wheezes, rales, rhonchi, stridor Cardiovascular Exam: Present: regular rate, normal rhythm, normal heart sounds. Absent: systolic murmur, diastolic murmur, rubs, gallop GI/Abdominal exam: Present: soft, tenderness. Absent: distended, guarding, rebound, rigid, mass, pulsatile mass, hernia Extremities exam: Present: normal inspection, normal capillary refill. Absent: pedal edema, calf tenderness Back exam: Present: normal inspection. Absent: CVA tenderness (R), CVA tenderness (L) Neurological exam: Present: alert Skin exam: Present: warm, dry, intact, normal color. Absent: rash Course Vital Signs 10/09/22 10/09/22 10/09/22 16:03 19:48 22:51 Temperature 98.8 F Pulse Rate 61 103 H 106 H Respiratory 18 18 18 Rate Blood Pressure 141/64 187/75 119/56 O2 Sat by Pulse 98 98 95 Oximetry 10/10/22 00:32 Temperature Pulse Rate 92 Respiratory 18 Rate Blood Pressure 120/67 O2 Sat by Pulse 95 Oximetry Medical Decision Making - Medical Decision Making The patient had CT of the abdomen and pelvis which I interpreted as showing ureteral stone with hydronephrosis. Was pt. sent in by a medical professional or institution (, PA, DIRECTOR OF GROUP SALES, urgent care, hospital, or snf...) When possible be specific @ -[No] Did you speak to anyone other than the patient for history (EMS, parent, family, police, friend...)? What history was obtained from this source @ -[No] Did you review nursing and triage notes (agree or disagree)? Why? @ -[I reviewed and agree with nursing and triage notes] Were old charts reviewed (outside hosp., previous admission, EMS record, old EKG, old radiological studies, urgent care reports/EKG's, snf records)? Report findings @ -[No old charts were reviewed] Differential Diagnosis (chest pain, altered mental status, abdominal pain women, abdominal pain men, vaginal bleeding, weakness, fever, dyspnea, syncope, headache, dizziness, GI bleed, back pain, seizure, CVA, palpatations, mental health, musculoskeletal)? @ -[Differential Abdominal Pain Women: Appendicitis, Cholecystitis, diverticulosis, ischemic bowel, pancreatitis, hepatitis, UTI, gastroenteritis, AAA, incarcerated hernia, bowel obstruction, constipation, inflammatory bowel, hepatitis, peptic ulcer disease, splenic infarction, perforated viscus, vulvitis, ovarian torsion, PID, kidney stone, placenta abruption, this is not meant to be an all-inclusive list EKG interpreted by me (3pts min.). @ -[ X-rays interpreted by me (1pt min.). @ -[None done] CT interpreted by me (1pt min.). @ -[As above U/S interpreted by me (1pt. min.). @ -[None done] What testing was considered but not performed or refused? (CT, X-rays, U/S, labs)? Why? @ -[None] What meds were considered but not given or refused? Why? @ -[None] Did you discuss the management of the patient with other professionals (professionals i.e. , PA, DIRECTOR OF GROUP SALES, lab, RT, psych nurse, social sciences professor, supervisor dental laboratory, teacher, liaison officer, caseworker intake)? Give summary @ -[No] Was smoking cessation discussed for >3mins.? @ -[No] Was critical care preformed (if so, how long)? @ -[No] Were there social determinants of health that impacted care today? How? (Homelessness, low income, unemployed, alcoholism, drug addiction, transportation, low edu. Level, literacy, decrease access to med. care, assisted, rehab)? @ -[No] Was there de-escalation of care discussed even if they declined (Discuss DNR or withdrawal of care, Hospice)? DNR status @ -[No] What co-morbidities impacted this encounter? (DM, HTN, Smoking, COPD, CAD, Cancer, CVA, ARF, Chemo, Hep., AIDS, mental health diagnosis, sleep apnea, morbid obesity)? @ -[None] Was patient admitted / discharged? Hospital course, mention meds given and route, prescriptions, significant lab abnormalities, going to OR and other pertinent info. @ -[Patient is a 52-year-old woman presenting with abdominal pain and found to have ureteral stone with hydronephrosis. The stone is at the larger end of what may be expected to pass spontaneously, and I discussed admission, but the patient feeling better and would like to go home. Recommended close follow-up with urology and to have strict return parameters which we discussed Undiagnosed new problem with uncertain prognosis? @ -[No] Drug Therapy requiring intensive monitoring for toxicity (Heparin, Nitro, Insulin, Cardizem)? @ -[No] Were any procedures done? @ -[No] Diagnosis/symptom? @ -[Acute ureterolithiasis with hydronephrosis Acute, or Chronic, or Acute on Chronic? @ -[default] Uncomplicated (without systemic symptoms) or Complicated (systemic symptoms)? @ -[Uncomplicated Side effects of treatment? @ -[No] Exacerbation, Progression, or Severe Exacerbation? @ -[No] Poses a threat to life or bodily function? How? (Chest pain, USA, CA, pneumonia, PE, COPD, DKA, ARF, appy, cholecystitis, CVA, Diverticulitis, Homicidal, Suicidal, threat to staff... and all critical care pts) @ -[No] - Lab Data Result diagrams: 10/09/22 17:38 10/09/22 17:38 Lab Results 10/09/22 10/09/22 10/09/22 Range/Units 17:38 17:38 17:38 WBC 13.0 H (3.8-10.6) k/uL RBC 5.17 (3.80-5.40) m/uL Hgb 14.9 (11.4-16.0) gm/dL Hct 44.9 (34.0-46.0) % MCV 86.8 (80.0-100.0) fL MCH 28.8 (25.0-35.0) pg MCHC 33.1 (31.0-37.0) g/dL RDW 13.5 (11.5-15.5) % Plt Count 204 (150-450) k/uL MPV 7.8 Neutrophils % 88 % Lymphocytes % 7 % Monocytes % 3 % Eosinophils % 1 % Basophils % 0 % Neutrophils # 11.3 H (1.3-7.7) k/uL Lymphocytes # 1.0 (1.0-4.8) k/uL Monocytes # 0.4 (0-1.0) k/uL Eosinophils # 0.1 (0-0.7) k/uL Basophils # 0.0 (0-0.2) k/uL Sodium (137-145) mmol/L Potassium (3.5-5.1) mmol/L Chloride (98-107) mmol/L Carbon Dioxide (22-30) mmol/L Anion Gap mmol/L BUN (7-17) mg/dL Creatinine (0.52-1.04) mg/dL Est GFR (CKD-EPI)AfAm (>60 ml/min/1.73 sqM) Est GFR (CKD-EPI)NonAf (>60 ml/min/1.73 sqM) Glucose (74-99) mg/dL Plasma Lactic Acid Andrea (0.7-2.0) mmol/L Calcium (8.4-10.2) mg/dL Total Bilirubin (0.2-1.3) mg/dL AST (14-36) U/L ALT (4-34) U/L Alkaline Phosphatase (38-126) U/L C-Reactive Protein (<1.0) mg/dL Total Protein (6.3-8.2) g/dL Albumin (3.5-5.0) g/dL Amylase (30-110) U/L Lipase (23-300) U/L Urine Color Yellow Urine Appearance Clear (Clear) Urine pH 8.0 (5.0-8.0) Ur Specific [place] 1.017 (1.001-1.035) Urine Protein Negative (Negative) Urine Glucose (UA) Negative (Negative) Urine Ketones Negative (Negative) Urine Blood Negative (Negative) Urine Nitrite Negative (Negative) Urine Bilirubin Negative (Negative) Urine Urobilinogen <2.0 (<2.0) mg/dL Ur Leukocyte Esterase Negative (Negative) Urine HCG, Qual Not Detected (Not Detectd) 10/09/22 10/09/22 Range/Units 17:38 17:38 WBC (3.8-10.6) k/uL RBC (3.80-5.40) m/uL Hgb (11.4-16.0) gm/dL Hct (34.0-46.0) % MCV (80.0-100.0) fL MCH (25.0-35.0) pg MCHC (31.0-37.0) g/dL RDW (11.5-15.5) % Plt Count (150-450) k/uL MPV Neutrophils % % Lymphocytes % % Monocytes % % Eosinophils % % Basophils % % Neutrophils # (1.3-7.7) k/uL Lymphocytes # (1.0-4.8) k/uL Monocytes # (0-1.0) k/uL Eosinophils # (0-0.7) k/uL Basophils # (0-0.2) k/uL Sodium 137 (137-145) mmol/L Potassium 3.9 (3.5-5.1) mmol/L Chloride 100 (98-107) mmol/L Carbon Dioxide 31 H (22-30) mmol/L Anion Gap 6 mmol/L BUN 19 H (7-17) mg/dL Creatinine 0.52 (0.52-1.04) mg/dL Est GFR (CKD-EPI)AfAm >90 (>60 ml/min/1.73 sqM) Est GFR (CKD-EPI)NonAf >90 (>60 ml/min/1.73 sqM) Glucose 127 H (74-99) mg/dL Plasma Lactic Acid Andrea 1.1 (0.7-2.0) mmol/L Calcium 9.1 (8.4-10.2) mg/dL Total Bilirubin 0.6 (0.2-1.3) mg/dL AST 29 (14-36) U/L ALT 42 H (4-34) U/L Alkaline Phosphatase 88 (38-126) U/L C-Reactive Protein 1.0 H (<1.0) mg/dL Total Protein 7.2 (6.3-8.2) g/dL Albumin 4.3 (3.5-5.0) g/dL Amylase 65 (30-110) U/L Lipase 35 (23-300) U/L Urine Color Urine Appearance (Clear) Urine pH (5.0-8.0) Ur Specific [place] (1.001-1.035) Urine Protein (Negative) Urine Glucose (UA) (Negative) Urine Ketones (Negative) Urine Blood (Negative) Urine Nitrite (Negative) Urine Bilirubin (Negative) Urine Urobilinogen (<2.0) mg/dL Ur Leukocyte Esterase (Negative) Urine HCG, Qual (Not Detectd) Disposition Clinical Impression: Calculus of kidney Disposition: HOME SELF-CARE Condition: Fair Instructions (If sedation given, give patient instructions): Kidney Stones (ED) Prescriptions: Ondansetron Odt [Zofran ODT] 4 mg PO Q8HR PRN #10 tab PRN Reason: Nausea Is patient prescribed a controlled substance at d/c from ED?: Yes Referrals: Reji Simmons MD [Primary Care Provider] - 1-2 days
[2022-10-09 18:16] LABS: Basophils % (A) 0 %; Eosinophils # (A) 0.1 k/uL (0-0.7); Eosinophils % (A) 1 %; HCT 44.9 % (34.0-46.0); HGB 14.9 gm/dL (11.4-16.0); Lymphocytes % (A) 7 %; MCH 28.8 pg (25.0-35.0); MCHC 33.1 g/dL (31.0-37.0); MCV 86.8 fL (80.0-100.0); Mean Platelet Volume 7.8; Monocytes # (A) 0.4 k/uL (0-1.0); Monocytes % (A) 3 %; Neutrophils # (A) 11.3 k/uL (1.3-7.7); Neutrophils % (A) 88 %; Platelet Count 204 k/uL (150-450); RBC 5.17 m/uL (3.80-5.40); RDW 13.5 % (11.5-15.5)
--- NOTE | 2022-10-09 18:16 | CT ---
EXAMINATION TYPE: CT abdomen pelvis wo con CT DLP: 801.1 mGycm, Automated exposure control for dose reduction was used. DATE OF EXAM: 10/09/2022 5:59 PM COMPARISON: CT abdomen pelvis 04/07/2022 , CT abdomen pelvis 02/06/2022, gallbladder ultrasound 2 CLINICAL INDICATION:Female, 52 years old with history of abdominal pain, nonlocalized; Abdominal pain , nausea TECHNIQUE: Axial CT of the abdomen and pelvis. Sagittal and coronal reformats were created on a [employer] workstation. Contrast used: None Oral contrast used: without Oral Contrast FINDINGS: LOWER CHEST: Unremarkable ABDOMEN LIVER: Unremarkable GALLBLADDER AND BILE DUCTS: Hyperdense layering biliary debris. No wall thickening or pericholecystic fluid. Prominent common bile duct and minimal dilatation of the proximal intrahepatic ducts, not sig nificantly changed from prior exams. PANCREAS: Normal for technique. SPLEEN: Unremarkable. ADRENAL GLANDS: Unremarkable. KIDNEYS AND URETERS: Moderate left hydroureteronephrosis and perinephric fat stranding. There is an a pproximately 9 mm calculus in the distal left ureter near the ureterovesicular junction (series 202, image 62 and series 201, image 75). Right kidney is normal in appearance. PELVIS BLADDER: Unremarkable REPRODUCTIVE: Unremarkable. ABDOMEN & PELVIS STOMACH AND BOWEL: Small hiatal hernia. Postsurgical changes to the stomach and small bowel from prio r bypass. Scattered diverticula are noted throughout the colon. No evidence of bowel obstruction. Loretta endix is not seen PERITONEUM: No evidence of pneumoperitoneum or free fluid. VASCULATURE: No evidence of aortic aneurysm. MUSCULOSKELETAL: Multilevel cervical discogenic and degenerative changes. Grade 1 anterolisthesis of L4 and L5. LYMPH NODES: No gross evidence for lymphadenopathy. SOFT TISSUE/ABDOMINAL WALL: Unremarkable IMPRESSION: 1. Distal left ureteral calculus with moderate upstream hydroureteronephrosis. 2. Similar mild intra and extrahepatic biliary ductal dilatation without evidence for acute change fr om prior CT examinations. 3. Biliary debris without acute inflammatory changes of the gallbladder. 4. Additional incidental findings as detailed above.
[2022-10-09 18:33] LABS: ALT 42 U/L (4-34); AST 29 U/L (14-36); African American GFR (CKD) >90 (>60 ml/min/1.73 sqM); Albumin 4.3 g/dL (3.5-5.0); Alkaline Phosphatase 88 U/L (38-126); Amylase 65 U/L (30-110); Anion Gap 6 mmol/L; Blood Urea Nitrogen 19 mg/dL (7-17); Calcium 9.1 mg/dL (8.4-10.2); Carbon Dioxide 31 mmol/L (22-30); Chloride 100 mmol/L (98-107); Glucose 127 mg/dL (74-99); Lipase 35 U/L (23-300); Non-African American GFR(CKD) >90 (>60 ml/min/1.73 sqM); Potassium 3.9 mmol/L (3.5-5.1); Sodium 137 mmol/L (137-145); Total Bilirubin 0.6 mg/dL (0.2-1.3); Total Protein 7.2 g/dL (6.3-8.2)
[2022-10-09] MEDS ORDERED: TAMSULOSIN 0.4 MG CAP.ER.24H PO STA (19:40)
[2022-10-09] MEDS ORDERED: KETOROLAC 15 MG/ML 1 ML VIAL IVP STA (19:56)
[2022-10-09] MEDS ORDERED: HYDROmorphone 1 MG/ML 1 ML SYRINGE IVP STA ×2 (19:56→21:59)
[2022-10-09 20:03] LABS: Appearance,Urine Clear (Clear); Bilirubin,Urine Negative (Negative); Blood,Urine Negative (Negative); Color,Urine Yellow; Glucose,Urine (UA) Negative (Negative); Ketones,Urine Negative (Negative); Leukocyte Esterase,Urine Negative (Negative); Nitrite,Urine Negative (Negative); Protein,Urine Negative (Negative); Specific Gravity,Urine 1.017 (1.001-1.035); Urobilinogen,Urine <2.0 mg/dL (<2.0)
[2022-10-10 00:33] VITALS: BP 120/67; PULSE 92
== END 2022-10-10 00:33 | disposition home or self-care (01) ==
LOC: EC 15:40
DX: N13.2 Hydronephrosis with renal and ureteral calculous obstruction (principal); I10 Essential (primary) hypertension; F32.A Depression, unspecified; Z88.0 Allergy status to penicillin; Z88.1 Allergy status to other antibiotic agents; Z88.5 Allergy status to narcotic agent; Z88.8 Allergy status to other drugs, medicaments and biological substances; Z79.899 Other long term (current) drug therapy
CPT/HCPCS: 36415; 80053; 82150; 83605; 83690; 85025; 86140; 81003; 81025; 74176; 99284; 96374; 96375 ×3; 96376; J2270; J2405; J1170; J1885

== ENCOUNTER → 2022-10-19 | Outpatient (CLI) | payer BC ==
[2022-10-19 16:10] LABS: Appearance,Urine Cloudy (Clear); Bilirubin,Urine Small (Negative); Blood,Urine Negative (Negative); Color,Urine Dark Yellow (Yellow); Ketones,Urine Trace (Negative); Nitrite,Urine Negative (Negative); PH, Urine 5.5; Specific Gravity,Urine 1.022 (1.001-1.030)
[2022-10-19 16:19] LABS: Basophils # (A) 0.03 X 10*3/uL (0.00-0.10); Basophils % (A) 0.3 %; Eosinophils # (A) 0.08 X 10*3/uL (0.04-0.35); Eosinophils % (A) 0.7 %; HCT 37.3 % (37.2-46.3); HGB 11.8 d/dL (12.0-15.0); Lymphocytes # (A) 1.65 X 10*3/uL (0.90-5.00); Lymphocytes % (A) 13.9 %; MCH 28.4 pg (27.0-32.0); MCHC 31.6 d/dL (32.0-37.0); MCV 89.9 FL (80.0-97.0); Monocytes # (A) 1.03 X 10*3/uL (0.20-1.00); Monocytes % (A) 8.7 %; NRBC Per 100 WBC 0 X 10*3/uL (0.00-0.01); Neutrophils # (A) 9.01 X 10*3/uL (1.80-7.70); Neutrophils % (A) 75.8 %; Platelet Count 373 X 10*3/uL (140-440); RBC 4.15 X 10*6/uL (4.10-5.20); RDW 13.2 % (11.5-14.5); WBC 11.87 X 10*3/uL (4.50-10.00)
[2022-10-19 16:38] LABS: Bacteria,Urine None Seen (None Seen)
[2022-10-19 17:25] LABS: Calcium 8.6 mg/dL (8.7-10.3); Chloride 98 mmol/L (96-109); Glucose 70 mg/dL (70-110); Potassium 3.6 mmol/L (3.5-5.5); Sodium 140 mmol/L (135-145)
== END | disposition home or self-care (01) ==
LOC: LABPAT 11:04
PROVIDERS: ATTEND Urology
DX: Z01.812 Encounter for preprocedural laboratory examination (principal); N20.1 Calculus of ureter; R31.29 Other microscopic hematuria
CPT/HCPCS: 80048; 81001; 85025; 87086

== ENCOUNTER 2022-10-25 08:11 | Day surgery (SDC) | payer BC ==
--- NOTE | 2022-10-25 07:22 | P.HPIHPCON ---
History of Present Illness H&P Date: 10/25/22 Chief Complaint: Left ureteral stone This is a 52-year-old female with history of a 9 mm left-sided distal ureteral stone, she symptomatically from her stone. Option of left-sided ureteroscopy with holmium laser was discussed. Aware of the risk which includes but not limited to bleeding, infection, injury to the ureter. Risk of anesthesia was also discussed. She understood all the risk and agreed to proceed Consent for Procedure: I have explained the operation/procedure to the patient, including the risks, benefits, side effects, alternative therapies (including not receiving the proposed treatment or service), the likelihood of the patient achieving his/her goals, and potential recuperation problems for the procedure/sedation/analgesia, as well as any blood products, if indicated. I also explained to the patient the risks, benefits and side effects of the alternatives, as well as the risks related to not receiving the proposed procedure, care, treatment, or services. Past Medical History Past Medical History: Hypertension Additional Past Medical History / Comment(s): kidney stones, History of Any Multi-Drug Resistant Organisms: None Reported Past Surgical History: Bariatric Surgery Additional Past Surgical History / Comment(s): Laparoscopic examination for infertility. Gastric bypass. Past Anesthesia/Blood Transfusion Reactions: Postoperative Nausea & Vomiting (PONV) Smoking Status: Never smoker - Past Family History Mother Additional Family Medical History / Comment(s): Parkinson's disease. Aortic valve replacement. Father Family Medical History: Diabetes Mellitus Additional Family Medical History / Comment(s): . Medications and Allergies Home Medications Medication Instructions Recorded Confirmed Type Albuterol Inhaler [Ventolin Hfa 2 puff INHALATION RT-QID PRN 10/09/22 10/21/22 History Inhaler] Albuterol Nebulized [Ventolin 2.5 mg INHALATION RT-QID PRN 10/09/22 10/21/22 History Nebulized] Doxepin HCl 50 mg PO HS 10/09/22 10/21/22 History Naltrexone HCl [Revia] 50 mg PO HS 10/09/22 10/21/22 History Ondansetron Odt [Zofran ODT] 4 mg PO Q8HR PRN #10 tab 10/09/22 10/21/22 Rx PARoxetine HCL [Paxil] 40 mg PO HS 10/09/22 10/21/22 History Tirzepatide [Mounjaro] 10 mg SQ MO 10/09/22 10/21/22 History amLODIPine [Norvasc] 5 mg PO HS 10/09/22 10/21/22 History buPROPion [Wellbutrin] 75 mg PO BID 10/09/22 10/21/22 History hydroCHLOROthiazide [Hydrodiuril] 25 mg PO HS 10/09/22 10/21/22 History Tamsulosin [Flomax] 0.4 mg PO HS 10/21/22 10/21/22 History Allergies Allergy/AdvReac Type Severity Reaction Status Date / Time iodine Allergy Mild Rash/Hives Verified 10/21/22 14:41 acetaminophen [From [place]] Allergy Itching Verified 10/21/22 15:05 heparin Allergy Rash/Hives Verified 10/21/22 14:41 hydrocodone [From [place]] Allergy Itching Verified 10/21/22 15:05 levofloxacin [From Levaquin] Allergy Anaphylaxis Verified 10/21/22 14:41 lisinopril Allergy Anaphylaxis Verified 10/21/22 14:41 Penicillins Allergy Rash/Hives Verified 10/21/22 14:41 Surgical - Exam - General no distress, moderate pain - Eyes normal ocular movement, no pale - ENT normal nares, normal mucosa - Respiratory normal expansion, normal respiratory effort - Abdomen Abdomen: soft, non tender - Psychiatric oriented to time, oriented to person, oriented to place Assessment and Plan Assessment: OR for left-sided ureteroscopy, holmium laser lithotripsy, stone basketing and stent insertion
[~2022-10-25 08:11] MED LIST changes: -CASIRIVIMAB (REGN10933) (EUA) 600 MG, IMDEVIMAB (REGN10987) (EUA) 600 MG in SODIUM CHLO... IVPB ONE; +DEXAMETHASONE SOD PHOSPHATE 4 MG/ML 1 ML VIAL IV ONE; +HYDROmorphone 0.5 MG/0.5 ML SYRINGE IVP PRN; +LACTATED RINGERS 1,000 ML IV SCH; +LIDOCAINE 1% (10MG/ML) FOR IV START INTRADERMA PRN; +ONDANSETRON 4 MG/2 ML VIAL IVP ONE; +Pre Op ABX Message 1 EACH MISC MISCELLANE ONE
--- NOTE | 2022-10-25 08:31 | XR ---
EXAMINATION TYPE: XR KUB DATE OF EXAM: 10/25/2022 HISTORY: Pain Comparison: None.Single KUB is submitted for interpretation. Findings: Right renal calculi: None Visualized. Right ureteral calculi: None Visualized. Left renal calculi: None Visualized. Left ureteral calculi: Distal left ureteral calculus measures 5.8 mm in width by 1.2 cm in length. Pelvic calcifications: None Visualized. Bowel gas pattern is unremarkable. No free air. No mass effects. IMPRESSION: 1. Distal left ureteral calculus measures 5.8 mm in width by 1.2 cm in length.
[2022-10-25 09:07] LABS: Glucose,Whole Blood 99 mg/dL (70-110)
[2022-10-25] MEDS ORDERED: LIDOCAINE 2% INJ 20 MG/ML (2 ML VIAL) ONE (09:13)
[2022-10-25] MEDS ORDERED: GLYCOPYRROLATE 0.2 MG/ML 2 ML VIAL ONE (09:13)
[2022-10-25] MEDS ORDERED: fentaNYL (PF) 50 MCG/ML 2 ML AMP ONE (09:13)
[2022-10-25] MEDS ORDERED: PROPOFOL 10 MG/ML 20 ML VIAL IV ONE (09:13)
[2022-10-25] MEDS ORDERED: MIDAZOLAM 2 MG/2 ML VIAL ONE (09:13)
[2022-10-25] MEDS ORDERED: KETOROLAC 15 MG/ML 1 ML VIAL ONE (09:13)
[2022-10-25] MEDS ORDERED: SODIUM CHLORIDE 0.9% 50 ML with ceFAZolin 2,000 MG IV ONE ×2 (09:15)
[2022-10-25 10:07] VITALS: TEMP 97.5
--- NOTE | 2022-10-25 10:23 | FL ---
Fluoroscopy History: LEFT URETERAL STONE 2 sec [place] .[id number] dap dose
[2022-10-25 11:22] VITALS: BP 118/66; PULSE 82; RESP 18
--- NOTE | 2022-10-25 12:38 | P.OP ---
Date of Procedure: 10/25/22 Preoperative Diagnosis: Left ureteral stone Postoperative Diagnosis: Same Procedure(s) Performed: Cystoscopy, left ureteroscopy, holmium laser lithotripsy, stone basketing and stent insertion Implants: 6-[place] by 24 cm stent left on a string Anesthesia: ELBA Surgeon: Meliton Knowles Estimated Blood Loss (ml): 5 Pathology: other (Left ureteral stone) Condition: stable Disposition: PACU Indications for Procedure: This is a 52-year-old female with history of a 9 mm left-sided distal ureteral stone, she symptomatically from her stone. Option of left-sided ureteroscopy with holmium laser was discussed. Aware of the risk which includes but not limited to bleeding, infection, injury to the ureter. Risk of anesthesia was also discussed. She understood all the risk and agreed to proceed Operative Findings: Left distal ureteral stone Description of Procedure: Patient brought to the operating room, general anesthesia was induced. She was prepped and draped in sterile fashion and placed in dorsal lithotomy position. Cystoscopy fitted with 21-[place] sheath was inserted per urethra, cystoscopy was performed which showed no abnormality within the bladder. Attention was then carried to the left ureteral orifice, at this time the semirigid ureteroscope was inserted per urethra and advanced up the left ureteral orifice, a stone was encountered in the distal ureter. Using the holmium laser the stone was fragmented , sizable fragments were removed using the stone basket. The ureteroscope was advanced all the way up to the UPJ which showed no stones . Pullback ureteroscopy was performed which showed no injury to the ureter or any sizable fragments, as ureteroscope was withdrawn a sensor wire was advanced through. Next ureteral stent was passed over the wire, the proximal curl was vi sualized on fluoroscopy and the distal curl was visualized using the cystoscope. The stent was left on a string and taped to the patient's left thigh. Patient tolerated procedure well taken to recovery in stable condition. Patient was advised to remove the stent in 1 week
== END 2022-10-25 12:20 | disposition home or self-care (01) ==
LOC: OR 08:11
PROVIDERS: ATTEND Urology
DX: N20.1 Calculus of ureter (principal); I10 Essential (primary) hypertension; J45.909 Unspecified asthma, uncomplicated; Z83.3 Family history of diabetes mellitus; Z79.899 Other long term (current) drug therapy
CPT/HCPCS: 82365; 74018; 52356; C2625; C1769; J2250; J1100; J2405; J0690; J3010; J1885; J2704; J2001

== ENCOUNTER → 2024-03-26 | Outpatient (CLI) | payer BC, OTHER ==
--- NOTE | 2024-03-29 16:17 | MM ---
Reason for Exam: Screening (asymptomatic). Last mammogram was performed 2 year(s) and 10 month(s) ago. Patient History: Menarche at age 8. First Full-Term at age 34. Late child-bearing (after 30). Perimenopausal. Risk Values: Sandhya 5 year model risk: 1.9%. NCI Lifetime model risk: 11.9%. Prior Study Comparison: 03/01/2007 Bilateral Diagnostic Mammogram, [facility]. 05/06/2020 Bilateral Screening Mammogram, [facility] . 05/27/2021 Bilateral Diagnostic Mammogram, [facility] . Tissue Density: There are scattered areas of fibroglandular density. Findings: Analyzed By CAD. Unchanged subareolar asymmetric density on both sides. There is no suspicious group of microcalcifications or new suspicious mass in either breast. Overall Assessment: Negative, BI-RAD 1 Management: Screening Mammogram of both breasts in 1 year. . Patient should continue monthly self-breast exams. A clinical breast exam by your physician is recommended on an annual basis. This exam should not preclude additional follow-up of suspicious palpable abnormalities. Note on Sandhya scores and lifetime risk: 1. A Sandhya score greater than 3% is considered moderate risk. If this is the case, consider specialist referral to assess eligibility for a risk reducing agent. 2. If overall lifetime risk for the development of breast cancer is 20% or higher, the patient may qualify for future screening with alternating mammogram and breast MRI. [facility], , 03/29/2024 4:14 PM. Electronically signed and approved by: Emy Santiago M.D. Radiologist
== END | disposition home or self-care (01) ==
LOC: RADMAMWWP 09:10
PROVIDERS: ATTEND Internal Medicine
DX: Z12.31 Encounter for screening mammogram for malignant neoplasm of breast (principal); R92.323 Mammographic fibroglandular density, bilateral breasts
CPT/HCPCS: 77063; 77067